=== PATIENT | male | born 2000 | race Asian ===

== ENCOUNTER 2024-01-10 15:08 | Emergency (ER) | payer MEDICARE, SELFPAY ==
[2024-01-10] VITALS (15 sets, daily range): BP systolic 109–135; BP diastolic 71–96; BMI 22.9
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
--- NOTE | 2024-01-10 17:46 | EDRN ---
pt underwent moderate sedation w/ Dr. Bradley & Corrine Lyons, BUSINESS PROCESS REPRESENTATIVE
procedure started at 1709 w/ administration of 50mg of Propofol
1709 - another 20mg of Propofol administered
1710 - another 30mg of Propofol administered
1711 - another 20mg of Propofol administered
1718 procedure end time
(total of 120mg of Propofol given)
== END 2024-01-10 18:11 | disposition home or self-care (01) ==
LOC: EMR 15:08
PROVIDERS: EMERGENCY PHYSICIAN Emergency Medicine
DX: M24.411 Recurrent dislocation, right shoulder (principal); X58.XXXA Exposure to other specified factors, initial encounter; Y93.16 Activity, rowing, canoeing, kayaking, rafting and tubing; Y92.828 Other wilderness area as the place of occurrence of the external cause
CPT/HCPCS: 99285; 23650; 99152; 73020; 73030